=== PATIENT | male | born 1965 | race Caucasian/White ===

== ENCOUNTER 2017-12-05 06:56 | Day surgery (SDC) | payer OTHER ==
[2017-12-05] MEDS ORDERED: ONDANSETRON 4 MG INJ ×2 (07:00)
[2017-12-05] MEDS ORDERED: DEXAMETHASONE 4 MG/ML 1 ML INJ ×2 (07:00)
[2017-12-05] MEDS: CEFAZOLIN 2 GM/50 ML (PMX) 50 ML IVPB (07:30)
[2017-12-05] MEDS: SOD CHLORIDE 0.9% 1,000 ML IV (07:44)
[2017-12-05] MEDS ORDERED: ROCURONIUM 50 MG INJ (09:53)
[2017-12-05] MEDS ORDERED: PROPOFOL 20 ML (09:53)
[2017-12-05] MEDS ORDERED: CEFAZOLIN 1 GM INJ (09:54)
[2017-12-05] MEDS ORDERED: ACETAMINOPHEN 1000MG/100ML IV 100 ML (09:54)
[2017-12-05] MEDS: POLYMYXIN/BACITRACIN 1L IRRIG IRR (10:07)
[2017-12-05] MEDS: BUPIVACAINE 0.25% (MPF) 30 ML INJ (10:07)
[2017-12-05] MEDS ORDERED: NEOSTIGMINE 3 MG/3 ML SYRINGE (10:19)
[2017-12-05] MEDS ORDERED: GLYCOPYRROLATE 0.4 MG INJ (10:20)
[2017-12-05] MEDS ORDERED: ONDANSETRON 4 MG INJ IV (11:00)
[2017-12-05] MEDS ORDERED: KETOROLAC 30 MG INJ IV (11:00)
[2017-12-05] MEDS ORDERED: METOCLOPRAMIDE 10 MG INJ IV (11:00)
[2017-12-05] MEDS ORDERED: HYDROmorphONE 1 MG/5 ML IV SYRINGE IV ×2 (11:00)
[2017-12-05] MEDS ORDERED: OXYCODONE/ACETAMINOPHEN (5/325) TAB PO ×2 (11:00)
[2017-12-05] MEDS ORDERED: DIPHENHYDRAMINE 50 MG INJ IV (11:00)
[2017-12-05] MEDS ORDERED: hydrALAzine 20 MG INJ IV (11:00)
[2017-12-05] MEDS ORDERED: MEPERIDINE 25 MG INJ IV (11:00)
[2017-12-05] MEDS ORDERED: FENTAnyl 50 MCG/ML VIAL IV ×3 (11:00)
[2017-12-05] MEDS ORDERED: EPHEDrine SULFATE 50 MG/5 ML SYG IV (11:00)
[2017-12-05] MEDS ORDERED: LABETALOL HCL 20MG INJ IV (11:00)
[2017-12-05] MEDS: HYDROCODONE/APAP (5/325) TAB PO (11:02)
[2017-12-05] MEDS: HYDROmorphONE 1 MG/5 ML IV SYRINGE IV (11:02)
== END 2017-12-05 13:14 | disposition home or self-care (01) ==
LOC: SDS 06:56
DX: K40.90 Unilateral inguinal hernia, without obstruction or gangrene, not specified as recurrent (principal)
CPT/HCPCS: 49507